=== PATIENT | female | born 1970 | race Caucasian/White ===

== ENCOUNTER → 2021-10-04 16:52 | Outpatient (BNVA) | payer BC, SELFPAY | PROVIDERS: Visit Provider Nurse Practitioner Family | DX: R53.83 Other fatigue (principal); R63.5 Abnormal weight gain; R68.89 Other general symptoms and signs; L65.9 Nonscarring hair loss, unspecified; F41.9 Anxiety disorder, unspecified | CPT/HCPCS: 80053; 80061; 84439; 84443; 84481 ==

== ENCOUNTER → 2023-03-27 16:08 | Outpatient (BNVA) | payer BC, SELFPAY | PROVIDERS: Visit Provider Nurse Practitioner Family | DX: F41.9 Anxiety disorder, unspecified (principal); R63.5 Abnormal weight gain; L65.9 Nonscarring hair loss, unspecified; R53.83 Other fatigue; R68.89 Other general symptoms and signs | CPT/HCPCS: 80053; 80061; 84443 ==